=== PATIENT | female | born 1975 | race African-American/Black ===

== ENCOUNTER 2019-03-05 06:00 | Emergency (ER) | payer OTHER ==
[~2019-03-05] VITALS: Ht 157.5 cm; Wt 81.0 kg
[2019-03-05] MEDS ORDERED: DIPHENHYDRAMINE 50MG/ML VIAL IV ONE (06:45)
[2019-03-05] MEDS ORDERED: FAMOTIDINE 20MG/2ML VIAL IV ONE (06:45)
[2019-03-05] MEDS ORDERED: EPINEPHRINE 1:1000 1 MG/ML AMP INJ ONE (06:45)
[2019-03-05] MEDS ORDERED: METHYLPREDNISOLONE SOD SUCC 125 MG/2 ML VIAL IV ONE (06:45)
[2019-03-05 06:55] LABS: BASOPHILS % 0.7 % (0.0-2.0); EOSINOPHILS % 5.7 % (0.0-5.0); HEMATOCRIT. 34.8 % (36.0-48.0); HEMOGLOBIN. 11.4 g/dL (12.0-16.0); LYMPHOCYTES % 21.5 % (20.0-50.0); MEAN CORPUSCULAR VOLUME 88.4 fL (81.0-99.0); MEAN PLATELET VOLUME 7.6 fl (7.4-10.4); MONOCYTES % 7.9 % (2.0-8.0); NEUTROPHILS % 64.2 % (40.0-76.0); PLATELET 251 x1000/uL (130-400); RED BLOOD CELL COUNT 3.93 mill/uL (4.2-5.4); RED CELL DISTRIBUTION WIDTH 15.4 % (11.6-14.6)
[2019-03-05 07:02] LABS: CHLORIDE 106 mEq/L (98-107)
[2019-03-05 07:05] LABS: HCG SCREEN NEGATIVE
[2019-03-05 10:51] VITALS: BP 127/72
== END 2019-03-05 10:54 | disposition home or self-care (01) ==
LOC: ER 06:00
DX: T42.6X5A Adverse effect of other antiepileptic and sedative-hypnotic drugs, initial encounter (principal); L50.0 Allergic urticaria; Z98.890 Other specified postprocedural states; Z88.6 Allergy status to analgesic agent; Y92.89 Other specified places as the place of occurrence of the external cause
CPT/HCPCS: 36415; 71045; 80053; 84703; 85025; 96374; 96375; 99284; J1200; J2930; J3490; Z7610

== ENCOUNTER 2019-10-13 13:51 | Emergency (ER) | payer OTHER ==
[~2019-10-13] VITALS: Ht 157.5 cm; Wt 85.0 kg
[2019-10-13] MEDS ORDERED: KETOROLAC 60MG/2ML VIAL IM ONE (19:00)
[2019-10-13 21:45] VITALS: BP 114/63
== END 2019-10-13 21:46 | disposition home or self-care (01) ==
LOC: ER 13:51
DX: R22.31 Localized swelling, mass and lump, right upper limb (principal); Z98.890 Other specified postprocedural states; Z88.5 Allergy status to narcotic agent
CPT/HCPCS: 73110; 93971; 96372; 99284; J1885